=== PATIENT | female | born 1995 | race Caucasian/White ===

== ENCOUNTER 2016-12-27 15:20 | Emergency (ER) | payer SELFPAY ==
[~2016-12-27] VITALS: Ht 165.1 cm; Wt 62.0 kg
[2016-12-27 16:17] LABS: BASOPHILS % 0.5 % (0.0-2.0); HEMATOCRIT. 34.2 % (36.0-48.0); HEMOGLOBIN. 11.9 g/dL (12.0-16.0); LYMPHOCYTES % 18.2 % (20.0-50.0); MEAN CORPUSCULAR HEMOGLOBIN 29.2 pg (28.0-32.0); MEAN CORPUSCULAR VOLUME 83.6 fL (81.0-99.0); MEAN PLATELET VOLUME 7.7 fl (7.4-10.4); MONOCYTES % 5.5 % (2.0-8.0); NEUTROPHILS % 74.8 % (40.0-76.0); PLATELET 221 x1000/uL (130-400); RED BLOOD CELL COUNT 4.09 mill/uL (4.2-5.4); RED CELL DISTRIBUTION WIDTH 14.3 % (11.6-14.6)
[2016-12-27 16:23] LABS: CLARITY URINE CLEAR (CLEAR); COLOR URINE YELLOW (YELLOW); GLUCOSE URINE NEGATIVE (NEGATIVE); KETONES URINE 3+ (NEGATIVE); LEUKOCYTE ESTERASE URINE NEGATIVE (NEGATIVE); NITRITE URINE NEGATIVE (NEGATIVE); OCCULT BLOOD URINE 1+ (NEGATIVE); PH URINE 5.5 (4.5-8.0); PROTEIN URINE NEGATIVE (NEGATIVE); SPECIFIC GRAVITY URINE 1.026 (1.005-1.030); UROBILINOGEN URINE 0.2 E.U./dL (0.2-1.0)
[2016-12-27 16:33] LABS: CARBON DIOXIDE 24 mEq/L (21-32); CHLORIDE 103 mEq/L (98-107)
[2016-12-27 16:56] LABS: B-HCG QUANTITATIVE 46762 mIU/mL (<3)
[2016-12-27 18:44] VITALS: BP 109/62
== END 2016-12-27 18:46 | disposition home or self-care (01) ==
LOC: ER 16:30
DX: O20.0 Threatened abortion (principal); Z3A.08 8 weeks gestation of pregnancy
CPT/HCPCS: 36415; 76801; 80048; 81001; 81025; 84702; 85025; 86850; 86900; 99285

== ENCOUNTER 2017-01-15 19:15 | Emergency (ER) | payer MEDICAID ==
[~2017-01-15] VITALS: Ht 172.7 cm; Wt 79.6 kg
[2017-01-15 21:30] LABS: CLARITY URINE CLEAR (CLEAR); COLOR URINE YELLOW (YELLOW); GLUCOSE URINE NEGATIVE (NEGATIVE); KETONES URINE NEGATIVE (NEGATIVE); LEUKOCYTE ESTERASE URINE NEGATIVE (NEGATIVE); NITRITE URINE NEGATIVE (NEGATIVE); OCCULT BLOOD URINE NEGATIVE (NEGATIVE); PROTEIN URINE NEGATIVE (NEGATIVE); UROBILINOGEN URINE 0.2 E.U./dL (0.2-1.0)
[2017-01-15 23:36] LABS: BASOPHILS % 0.3 % (0.0-2.0); EOSINOPHILS % 3.3 % (0.0-5.0); HEMATOCRIT. 36.4 % (36.0-48.0); HEMOGLOBIN. 12.1 g/dL (12.0-16.0); LYMPHOCYTES % 18.1 % (20.0-50.0); MEAN CORPUSCULAR HEMOGLOBIN 28.2 pg (28.0-32.0); MEAN CORPUSCULAR VOLUME 84.8 fL (81.0-99.0); MEAN PLATELET VOLUME 7.5 fl (7.4-10.4); MONOCYTES % 5.5 % (2.0-8.0); NEUTROPHILS % 72.8 % (40.0-76.0); PLATELET 209 x1000/uL (130-400); RED BLOOD CELL COUNT 4.29 mill/uL (4.2-5.4); RED CELL DISTRIBUTION WIDTH 14.4 % (11.6-14.6)
[2017-01-15 23:37] LABS: CHLORIDE 103 mEq/L (98-107)
[2017-01-15 23:53] LABS: CARBON DIOXIDE 24 mEq/L (21-32)
[2017-01-16 00:01] LABS: B-HCG QUANTITATIVE 36148 mIU/mL (<3)
[2017-01-16 01:25] VITALS: BP 105/66
== END 2017-01-16 01:27 | disposition home or self-care (01) ==
LOC: ER 21:21
DX: R10.31 Right lower quadrant pain (principal)
CPT/HCPCS: 36415; 76801; 80048; 81003; 84702; 85025; 99285

== ENCOUNTER 2017-07-08 17:55 | Emergency (ER) | payer MEDICAID, OTHER ==
[~2017-07-08] VITALS: Ht 170.2 cm; Wt 98.0 kg
== END 2017-07-08 19:40 | disposition home or self-care (01) ==
LOC: ER 17:55 → L&D 18:23
PROVIDERS: ADMIT Obstetrics & Gynecology; ATTEND Obstetrics & Gynecology
DX: O26.893 Other specified pregnancy related conditions, third trimester (principal); R10.2 Pelvic and perineal pain; M54.5 Low back pain; Z91.81 History of falling; Z3A.37 37 weeks gestation of pregnancy
CPT/HCPCS: 99281; G0378

== ENCOUNTER 2017-07-24 19:39 | Observation (INO) | payer OTHER ==
[~2017-07-24] VITALS: Ht 165.1 cm; Wt 93.0 kg
== END 2017-07-24 22:50 | disposition home or self-care (01) ==
LOC: INTOOBSV 19:39 → L&D 19:39
PROVIDERS: ADMIT Specialist; ATTEND Specialist
DX: O36.8130 Decreased fetal movements, third trimester, not applicable or unspecified (principal); Z3A.39 39 weeks gestation of pregnancy
CPT/HCPCS: 76805; 76818; G0378; 99281

== ENCOUNTER 2017-08-05 19:34 | Observation (INO) | payer OTHER ==
[~2017-08-05] VITALS: Ht 165.1 cm; Wt 99.8 kg
== END 2017-08-05 22:25 | disposition home or self-care (01) ==
LOC: L&D 19:34
PROVIDERS: ADMIT Specialist; ATTEND Specialist
DX: O62.9 Abnormality of forces of labor, unspecified (principal); O36.8130 Decreased fetal movements, third trimester, not applicable or unspecified; O48.1 Prolonged pregnancy; O26.893 Other specified pregnancy related conditions, third trimester; R10.9 Unspecified abdominal pain; Z3A.41 41 weeks gestation of pregnancy
CPT/HCPCS: 76815; 76818; 99281; G0378

== ENCOUNTER 2017-08-08 05:32 | Inpatient (IN) | payer OTHER ==
[~2017-08-08] VITALS: Ht 165.1 cm; Wt 100.7 kg
[2017-08-08] MEDS ORDERED: LACTATED RINGERS 1,000 ML IV SCH (06:37)
[2017-08-08] MEDS ORDERED: METHYLERGONOVINE MALEATE 0.2 MG/ML IM PRN (06:45)
[2017-08-08] MEDS ORDERED: CARBOPROST TROMETHAMINE 250 MCG/ML AMPUL IM PRN (06:45)
[2017-08-08] MEDS ORDERED: BETAMETHASONE ACET/BETAMET 30 MG/5 ML VIAL IM NR (06:45)
[2017-08-08] MEDS ORDERED: NALOXONE HCL 0.4 MG/ML 1ML VIAL IM PRN (06:45)
[2017-08-08] MEDS ORDERED: LIDOCAINE HCL 1% 20ML VIAL (Pyxis) INJ INFIL SCH (06:45)
[2017-08-08] MEDS ORDERED: BUTORPHANOL TARTRATE 2 MG/ML VIAL IV PRN (06:45)
[2017-08-08] MEDS ORDERED: PENICILLIN G POTASSIUM 5 MMU in DEXT 5% WATER 100 ML IV SCH (07:00)
[2017-08-08 07:47] LABS: CLARITY URINE CLEAR (CLEAR); COLOR URINE YELLOW (YELLOW); KETONES URINE 1+ (NEGATIVE); LEUKOCYTE ESTERASE URINE NEGATIVE (NEGATIVE); NITRITE URINE NEGATIVE (NEGATIVE); OCCULT BLOOD URINE NEGATIVE (NEGATIVE); PROTEIN URINE NEGATIVE (NEGATIVE); SPECIFIC GRAVITY URINE 1.022 (1.005-1.030); UROBILINOGEN URINE 0.2 E.U./dL (0.2-1.0)
[2017-08-08 07:51] LABS: BASOPHILS % 0.1 % (0.0-2.0); EOSINOPHILS % 0.6 % (0.0-5.0); HEMATOCRIT. 34.7 % (36.0-48.0); HEMOGLOBIN. 11.6 g/dL (12.0-16.0); LYMPHOCYTES % 10.7 % (20.0-50.0); MEAN CORPUSCULAR HEMOGLOBIN 27.9 pg (28.0-32.0); MEAN CORPUSCULAR VOLUME 83.6 fL (81.0-99.0); MEAN PLATELET VOLUME 7.7 fl (7.4-10.4); MONOCYTES % 6.5 % (2.0-8.0); NEUTROPHILS % 82.1 % (40.0-76.0); PLATELET 220 x1000/uL (130-400); RED BLOOD CELL COUNT 4.15 mill/uL (4.2-5.4); RED CELL DISTRIBUTION WIDTH 14.2 % (11.6-14.6)
[2017-08-08 07:55] LABS: INR 0.9; PARTIAL THROMBOPLASTIN TIME 29.6 sec (23.4-31.0); PROTHROMBIN TIME 9.4 sec (9.4-11.6)
[2017-08-08] MEDS: DEXT 5%/LR + PITOCIN 20UNITS/L 1,000 ML IV SCH ×2 (08:17→14:09)
[2017-08-08 08:34] LABS: *AMPHETAMINES SCREEN URINE NEGATIVE (NEGATIVE); *BARBITURATES SCREEN URINE NEGATIVE (NEGATIVE); *BENZODIAZEPINES SCREEN URINE NEGATIVE (NEGATIVE); *COCAINE SCREEN URINE NEGATIVE (NEGATIVE); CANNABINOID URINE SCREEN NEGATIVE (NEGATIVE); METHADONE URINE SCREEN NEGATIVE (NEGATIVE); OPIATES URINE SCREEN NEGATIVE (NEGATIVE); PHENCYCLIDINE URINE SCREEN NEGATIVE (NEGATIVE)
[2017-08-08 08:39] LABS: CHLORIDE 105 mEq/L (98-107)
[2017-08-08] MEDS ORDERED: PENICILLIN G POTASSIUM 2.5 MMU in DEXTROSE 5% WATER 50 ML IV SCH (11:00)
[2017-08-08 11:15] LABS: HEPATITIS B SURFACE ANTIGEN NEGATIVE
[2017-08-08] MEDS ORDERED: RHO(D) IMMUNE GLOBULIN 300 MCG/SYR IM PRN (13:45)
[2017-08-08] MEDS ORDERED: BENZOCAINE/LANOLIN/ALOE VERA SPRAY TOP PRN (13:45)
[2017-08-08] MEDS ORDERED: OXYCODONE HCL/ACETAMINOPHEN 5/325MG TABLET PO PRN ×2 (13:45)
[2017-08-08] MEDS ORDERED: IBUPROFEN 400MG TABLET PO PRN (13:45)
[2017-08-08] MEDS ORDERED: HEMORRHOIDAL SUPP PR PRN (13:45)
[2017-08-08] MEDS ORDERED: LANOLIN OINT 0.25 GM TUBE TOP PRN (13:45)
[2017-08-08] MEDS ORDERED: BISACODYL 10MG SUPP PR PRN (14:00)
[2017-08-08 15:15] VITALS: BP 116/66
[2017-08-08 15:45] VITALS: BP 108/63
[2017-08-08 20:00] VITALS: BP 99/58
[2017-08-08] MEDS: MAGNESIUM/ALUMINUM HYDROXIDE/SIMETHICONE 30ML UDC PO SCH (20:58)
[2017-08-08] MEDS: DOCUSATE SODIUM 100MG CAPSULE PO SCH (20:58)
[2017-08-08] MEDS: SIMETHICONE 80MG TABLET CHEW PO SCH (21:00)
[2017-08-09 04:30] VITALS: BP 101/61
[2017-08-09 07:32] VITALS: BP 100/61
[2017-08-09 08:12] LABS: BASOPHILS % 0.3 % (0.0-2.0); EOSINOPHILS % 1.2 % (0.0-5.0); HEMATOCRIT. 31.7 % (36.0-48.0); HEMOGLOBIN. 10.6 g/dL (12.0-16.0); MEAN CORPUSCULAR VOLUME 83.5 fL (81.0-99.0); MEAN PLATELET VOLUME 7.6 fl (7.4-10.4); MONOCYTES % 7.6 % (2.0-8.0); NEUTROPHILS % 75.9 % (40.0-76.0); PLATELET 215 x1000/uL (130-400); RED BLOOD CELL COUNT 3.79 mill/uL (4.2-5.4); RED CELL DISTRIBUTION WIDTH 14.2 % (11.6-14.6)
[2017-08-09] MEDS: MAGNESIUM/ALUMINUM HYDROXIDE/SIMETHICONE 30ML UDC PO SCH ×4 (08:27→21:04)
[2017-08-09] MEDS: SIMETHICONE 80MG TABLET CHEW PO SCH ×4 (08:28→21:03)
[2017-08-09] MEDS ORDERED: PRENATAL VIT/FE FUMARATE/FA TABLET PO SCH (09:00)
[2017-08-09] MEDS: FERROUS SULFATE 325MG TABLET PO SCH ×2 (12:49→17:25)
[2017-08-09 15:51] VITALS: BP 109/57
[2017-08-09 19:10] VITALS: BP 107/78
[2017-08-09] MEDS: DOCUSATE SODIUM 100MG CAPSULE PO SCH (21:03)
[2017-08-10] VITALS: BP 98/66
[2017-08-10 07:30] VITALS: BP 119/58
== END 2017-08-10 13:00 | disposition home or self-care (01) | DRG 560 ==
LOC: L&D 05:32 → OBSVTOIN 05:32 → 7EST PP/OB 15:05
PROVIDERS: ADMIT Obstetrics & Gynecology; ATTEND Obstetrics & Gynecology
PROC: 10E0XZZ Delivery of Products of Conception, External Approach (ICD-10-PCS; principal; 2017-08-08)
DX: O48.0 Post-term pregnancy (principal); Z37.0 Single live birth; Z3A.39 39 weeks gestation of pregnancy
CPT/HCPCS: 36415; 76805; 80305; 86592; 86703; 86762; 86850; 86900; 87340; 99281; G0378; J0595; J2540; J2590; J3490; J7060; J7120; A4315